=== PATIENT | female | born 1970 | race Caucasian/White ===

== ENCOUNTER 2017-02-28 06:33 | Observation (INO) | payer BC ==
[2017-02-26 13:18] LABS: BASOPHILS 0.3 %; BASOPHILS ABSOLUTE 0.02 10/3/uL (0.0-0.16); EOSINOPHILS 1.7 %; EOSINOPHILS ABSOLUTE 0.13 10/3/uL (0.0-0.53); HEMATOCRIT 38.7 % (36.0-48.0); HEMOGLOBIN 13.4 g/dL (12.0-16.0); IMMATURE GRANULOCYTES 0.4 %; IMMATURE GRANULOCYTES ABSOLUTE 0.03 10/3/uL (0.0-0.11); LYMPHOCYTES 28.8 %; LYMPHOCYTES ABSOLUTE 2.16 10/3/uL (0.67-4.30); MEAN CORPUS HGB CONC 34.6 g/dL (32.0-36.0); MEAN CORPUSCULAR HEMOGLOB 31.3 pg (26.0-34.0); MEAN CORPUSCULAR VOLUME 90.4 fL (80-100); MEAN PLATELET VOLUME 10.1 fL (9.2-13.0); MONOCYTES 5.9 %; MONOCYTES ABSOLUTE 0.44 10/3/uL (0.21-1.20); NEUTROPHILS 62.9 %; NEUTROPHILS ABSOLUTE 4.73 10/3/uL (2.02-8.40); PLATELET COUNT 227 10/3/uL (150-400); RBC DISTRIBUTION WIDTH 12.5 % (12.0-16.0); RED CELL COUNT 4.28 10/6/uL (4.0-5.6); WHITE BLOOD CELLS 7.5 10/3/uL (4.5-10.5)
[2017-02-26 13:19] LABS: MANUAL DIFF NO %
[2017-02-26 13:27] LABS: PARTIAL THROMBO TIME 26.5 SEC (22.5-37.2); PROTIME (NOT ORD) 12.6 SEC (12.0-14.5)
[2017-02-26 13:39] LABS: PFA (COL/EPI) 129 SEC (72-180)
[2017-02-26 13:44] LABS: A/G RATIO 1.4 (0.7-1.9); ALBUMIN 4.2 G/DL (3.5-5.0); ALKALINE PHOSPHATASE 87 U/L (45-117); BUN (BLOOD UREA NITROGEN) 8 MG/DL (6-23); CALCIUM, SERUM 9.6 MG/DL (8.5-10.4); CHLORIDE, SERUM 106 MMOL/L (96-112); CO2 (CARBON DIOXIDE) 27 MMOL/L (24-34); CREATININE 0.73 MG/DL (0.55-1.02); GFR AFRICAN AMERICAN 115 ML/MIN (>=60); GFR NON AFRICAN AMERICAN 99 ML/MIN (>=60); GLUCOSE, SERUM 87 MG/DL (60-99); SGOT(AST) 18 U/L (5-40); SGPT(ALT) 28 U/L (5-65); SODIUM, SERUM 142 MMOL/L (135-148); TOTAL BILIRUBIN 0.6 MG/DL (0-1.2); TOTAL PROTEIN 7.2 G/DL (6.0-8.5)
--- NOTE | ~2017-02-28 | OP ---
Record Of Operation [facility] [address] [place]. [address] NAME: JONNATHAN WERNER : 72 STATUS : DIS Zoran PAT#: [id number] AGE: 46 ADM/REG DATE : 02/28/17 MR#: [id number] REPORT SERV DATE: 03/03/17 DICTATED BY: PHOEBE MCGRAW JR. DATE: 02/28/17 REPORT STATUS : Draft TRANSCRIBED BY: MODRadha DATE: 02/28/17 DATE OF PROCEDURE: REASON FOR SURGERY: This 46-year-old patient presents with a malignancy of the left breast. The lesion is so vague and appears to be fairly large, and there may well be a second tumor in the superior position in the same breast seen on MRI. This tumor is hormone favorable and intermediate grade with final determinates to be made on the permanent sections. She has been counseled extensively and presented at the weekly breast conference. She has gone through cancerous counseling and has tested negative for inherited pattern of breast cancer. She is now scheduled for bilateral mastectomy and immediate reconstruction. PREOPERATIVE DIAGNOSIS: Carcinoma, left breast. POSTOPERATIVE DIAGNOSIS: Carcinoma, left breast. SURGEON: Dr. Mcgraw with reconstruction as per Dr. Castillo. SURGERY PERFORMED: [place] node localization on the left followed by bilateral mastectomy and sentinel node removal on the left and immediate reconstruction. Left side with skin sparing mastectomy and right side was nipple sparing mastectomy. DESCRIPTION OF PROCEDURE: The patient was initially injected in the [facility] facility. She was taken to the operating room and under general anesthesia, she was prepped and draped in supine position in the usual sterile fashion. The breast mounds were marked and the circumvertical marking on the left was outlined as well as the inframammary incision on the right. The left breast was approached and the circumvertical incision was made. Flaps were elevated in each direction to incorporate the entire breast mound. At no time was either tumor exposed. Dissection was carried into the low axilla. The breast was then removed from above downward incorporating the fascia. The breast was removed and oriented for pathology. As the breast was being removed, an 8 mm fleshy node was found on the lateral border on the latissimus and was removed as "intramammary" lymph node. Frozen section was negative. The gamma probe was used to isolate the active nodes in the left axilla. The intramammary node was not active. Two active nodes were removed with counts of 13,000 and 1300 with background count less than 20 indicating appropriate resection of the sentinel nodes. The more active node was somewhat fleshy and therefore frozen section requested, which was negative. The wound was irrigated and hemostasis obtained. Record Of Operation [facility] [address] [facility] [address] NAME: JONNATHAN WERNER : 72 STATUS : DIS Zoran PAT#: [id number] AGE: 46 ADM/REG DATE : 02/28/17 MR#: [id number] REPORT SERV DATE: 03/03/17 DICTATED BY: PHOEBE MCGRAW JR. DATE: 02/28/17 REPORT STATUS : Draft TRANSCRIBED BY: KIRSTIE DATE: 02/28/17 Attention was turned to the right breast. The inframammary incision was made and flaps elevated to incorporate the entire breast mound. The below upward dissection was performed in each of the plane. The fascia was removed from below upward at intervals as the anterior margin was dissected. Once the nipple itself was reached, the central ductal system that was resected was identified with suture material. Dissection was carried into the low axilla. Final dissection through the lower axillary tail was performed and the specimen removed and oriented for pathology. The wound was irrigated. Hemostasis obtained. The patient tolerated the procedure well without complications. ESTIMATED BLOOD LOSS: 150 mL. SPONGE COUNT: Correct. /TERESITAL Phoebe Mcgraw Jr., M.D. / [id number] CC: Divya Rhodes Jr., M.D. J. Kirk Rogers, D.O. F.A.C.P. John Shull, M.D.
--- NOTE | ~2017-02-28 | OP ---
Record Of Operation [facility] [address] [place]. [address] NAME: JONNATHAN WERNER : 72 STATUS : ADM Zoran PAT#: [id number] AGE: 46 ADM/REG DATE : 02/28/17 MR#: [id number] REPORT SERV DATE: 03/01/17 DICTATED BY: KARLI CASTILLO DATE: 02/28/17 REPORT STATUS : Draft TRANSCRIBED BY: MODRadha DATE: 02/28/17 DATE OF PROCEDURE: 02/28/2017 PREOPERATIVE DIAGNOSIS: Breast cancer, surgical absence of the breast. POSTOPERATIVE DIAGNOSIS: Breast cancer, surgical absence of the breast. PROCEDURE: Bilateral tissue expansion, acellular dermal matrix reconstruction of a left Circumvertical mastectomy and a right inframammary crease nipple-areolar complex sparing mastectomy. INDICATIONS AND FINDINGS OF THE PROCEDURE: This middle-aged female reports of breast cancer. She is anticipating a left circumvertical mastectomy, right nipple-areolar complex sparing mastectomy. She is appropriate for the above-described operative intervention. DETAILS OF THE PROCEDURE: The patient presents on the operating table after bilateral mastectomy. Our attention was initially turned to the right breast. The pectoralis was released and an appropriately reconstituted sheet of acellular dermal matrix was then sewn to the cut edge of the pectoralis muscle. The purpose of the acellular dermal matrix was to stabilize the soft tissue supplement. The soft tissue envelope recreated the inframammary crease and stabilize the position of the tissue distribution warehouse manager. A 475 mL tissue distribution warehouse manager was then placed behind the muscle AlloDerm construct. The AlloDerm was sewn tightly around its inferior edge with tab fixed to the chest wall and the implant was filled to 250 on the right. Inferior drains were placed. She was thoroughly irrigated. She had been infiltrated as a PEC and serratus block with ropivacaine and Precedex solution and the wounds were then closed with multiple layers of PDS and Monocryl through to an intracuticular in the skin. The nipple-areolar complex stayed well perfused throughout the procedure. Contralaterally, a similar procedure was carried out. The pectoralis muscle was released and identical sheet of acellular matrix was used to identical purpose. An identical tissue distribution warehouse manager was placed behind the muscle AlloDerm construct. With this completed, the implant was then filled to 150. Inferior and inferolateral drains were placed, and marionette stitches of 3-0 PDS were used to stabilize the soft tissue envelope. She had underwent a similar ropivacaine injection and the wounds were closed with multiple layers of 3-0 PDS and Monocryl through to an intracuticular in the skin. She was cleansed with peroxide. Nitroglycerin paste dressings were placed. Dry dressings were placed, and she was remanded to the recovery room in stable condition. All sponge and needle counts were correct. IVAN/KIRSTIE Karli Castillo M.D. / [id number] Record Of [address] [address] NAME: JONNATHAN WERNER : 72 STATUS : ADM Zoran PAT#: [id number] AGE: 46 ADM/REG DATE : 02/28/17 MR#: [id number] REPORT SERV DATE: 03/01/17 DICTATED BY: KARLI CASTILLO DATE: 02/28/17 REPORT STATUS : Draft TRANSCRIBED BY: KIRSTIE DATE: 02/28/17 CC: Roscoe Whitehead Jr., M.D.
[~2017-02-28 06:33] MED LIST: LEVSINTAB PO
[2017-03-01] MEDS ORDERED: AT25 PO (08:51)
[2017-03-01] MEDS ORDERED: K500 PO (08:52)
[2017-03-01] MEDS ORDERED: PERCOCET 7.5/321 TAB PO (08:53)
== END 2017-03-01 13:02 | disposition home or self-care (01) ==
LOC: SDC 06:33 → SDC/OF 13:54 → 4SO 15:09
PROVIDERS: Surgery Surgery of the Hand; Surgery Surgical Oncology
PROC: 0HHV0NZ Insertion of Tissue Expander into Bilateral Breast, Open Approach (ICD-10-PCS; 2017-02-28)
PROC: 07B60ZX Excision of Left Axillary Lymphatic, Open Approach, Diagnostic (ICD-10-PCS; 2017-02-28)
PROC: 0HBV0ZZ Excision of Bilateral Breast, Open Approach (ICD-10-PCS; principal; 2017-02-28 09:45)
PROC: 0HRV07Z Replacement of Bilateral Breast with Autologous Tissue Substitute, Open Approach (ICD-10-PCS; 2017-02-28 09:45)
DX: C50.912 Malignant neoplasm of unspecified site of left female breast (principal); C50.911 Malignant neoplasm of unspecified site of right female breast; K58.9 Irritable bowel syndrome, unspecified; Z90.89 Acquired absence of other organs; Z86.73 Personal history of transient ischemic attack (TIA), and cerebral infarction without residual deficits
CPT/HCPCS: 71020; 78195; 80053; 84703; 85025; 85576; 85610; 85730; 88305; 88307; 88331; 88333; 88341; 88342; 88360; 93005; 96374; 96375; 96376; A9270-GY; A9541; C1769; C1789; G0378; J0690; J1885; J2250; J2270; J2405; J2550; J2710; J2795; J3010; Q4116

== ENCOUNTER 2017-03-21 08:35 | Day surgery (SDC) | payer BC ==
[2017-03-14 15:35] LABS: BASOPHILS 0.3 %; BASOPHILS ABSOLUTE 0.03 10/3/uL (0.0-0.16); EOSINOPHILS 2.1 %; HEMATOCRIT 35.2 % (36.0-48.0); HEMOGLOBIN 11.8 g/dL (12.0-16.0); IMMATURE GRANULOCYTES 0.6 %; IMMATURE GRANULOCYTES ABSOLUTE 0.06 10/3/uL (0.0-0.11); LYMPHOCYTES 18.8 %; MEAN CORPUS HGB CONC 33.5 g/dL (32.0-36.0); MEAN CORPUSCULAR HEMOGLOB 31.6 pg (26.0-34.0); MONOCYTES 5.8 %; MONOCYTES ABSOLUTE 0.56 10/3/uL (0.21-1.20); NEUTROPHILS 72.4 %; NEUTROPHILS ABSOLUTE 6.93 10/3/uL (2.02-8.40); PLATELET COUNT 292 10/3/uL (150-400); RED CELL COUNT 3.74 10/6/uL (4.0-5.6); WHITE BLOOD CELLS 9.6 10/3/uL (4.5-10.5)
[2017-03-14 15:36] LABS: MANUAL DIFF NO %; MEAN CORPUSCULAR VOLUME 94.1 fL (80-100)
[2017-03-14 15:53] LABS: A/G RATIO 1.2 (0.7-1.9); ALBUMIN 3.4 G/DL (3.5-5.0); ALKALINE PHOSPHATASE 89 U/L (45-117); BUN (BLOOD UREA NITROGEN) 10 MG/DL (6-23); CALCIUM, SERUM 8.9 MG/DL (8.5-10.4); CHLORIDE, SERUM 106 MMOL/L (96-112); CO2 (CARBON DIOXIDE) 30 MMOL/L (24-34); CREATININE 0.63 MG/DL (0.55-1.02); GFR AFRICAN AMERICAN 126 ML/MIN (>=60); GFR NON AFRICAN AMERICAN 108 ML/MIN (>=60); GLOBULIN 2.9 G/DL (2.5-4.1); GLUCOSE, SERUM 90 MG/DL (60-99); POTASSIUM, SERUM 3.9 MMOL/L (3.5-5.3); SGOT(AST) 17 U/L (5-40); SGPT(ALT) 35 U/L (5-65); SODIUM, SERUM 141 MMOL/L (135-148); TOTAL BILIRUBIN 0.5 MG/DL (0-1.2); TOTAL PROTEIN 6.3 G/DL (6.0-8.5)
--- NOTE | ~2017-03-21 | OP ---
Record Of Operation [facility] [address] [place]. [address] NAME: JONNATHAN WERNER : 72 STATUS : [facility]#: [id number] AGE: 46 ADM/REG DATE : 03/21/17 MR#: [id number] REPORT SERV DATE: 03/24/17 DICTATED BY: PHOEBE MCGRAW JR. DATE: 03/21/17 REPORT STATUS : Draft TRANSCRIBED BY: KIRSTIE DATE: 03/21/17 DATE OF PROCEDURE: REASON FOR SURGERY: This 46-year-old patient has undergone bilateral mastectomy and immediate reconstruction for a tumor that eventually proved to be HER-2 positive and hormone positive. High-grade tumor noted, but node negative. She now is scheduled for chemotherapy and is in need of venous port. PREOPERATIVE DIAGNOSIS: Carcinoma, left breast with the need of venous port for chemotherapy. POSTOPERATIVE DIAGNOSIS: Carcinoma, left breast with the need of venous port for chemotherapy. SURGEON: Phoebe Mcgraw M.D. SURGERY PERFORMED: Insertion of PowerPort, venous port. PROCEDURE IN DETAIL: Under general anesthesia, the patient was prepped and draped in supine position in a usual sterile fashion. The right internal jugular was selected and lateral tunneling was to be done due to the presence of the reconstructed right breast and the temporary prosthesis, which gives a small area between the clavicle and prosthetic on the right side. The needle and wire were inserted into the vein without difficulty and documented to be in correct position with fluoroscopy. A small puncture incision was made behind the axillary fold and the catheter tunneled through to this point. It was further tunneled into an incision on the lateral chest wall. Fluoroscopy was used throughout to document correct positioning and no kinking. The port was assembled, aspirated, flushed, and secured to the chest wall on the lateral side of the chest with Prolene. The wound was irrigated. Hemostasis obtained. Final fluoroscopy revealed correct positioning with no kinking and good positioning in the junction of vena cava and atrium. These two small puncture wounds were closed with 4-0 Monocryl and Dermabond. The port site was closed with three layers of Monocryl and Dermabond. The patient tolerated the procedure well without complications. ESTIMATED BLOOD LOSS: Negligible. SPONGE COUNT: Correct. /KIRSTIE Phoebe Mcgraw Jr., M.D. Record Of Operation [facility] [address] [place]. [address] NAME: JONNATHAN WERNER : 72 STATUS : [facility] PAT#: [id number] AGE: 46 ADM/REG DATE : 03/21/17 MR#: [id number] REPORT SERV DATE: 03/24/17 DICTATED BY: PHOEBE MCGRAW JR. DATE: 03/21/17 REPORT STATUS : Draft TRANSCRIBED BY: MODL DATE: 03/21/17 / [id number] CC: Divya Rhodes Jr., D.O. F.A.C.P. Mark Brzezienski, M.D. John Shull, M.D. Bertrand Marquess Anz III, M.D.
[~2017-03-21 08:35] MED LIST changes: +AT25 PO; +K500 PO; +PERCOCET 7.5/321 TAB PO
== END 2017-03-21 17:59 | disposition home or self-care (01) ==
LOC: SDC 08:35
PROVIDERS: Surgery Surgical Oncology
PROC: 05HM33Z Insertion of Infusion Device into Right Internal Jugular Vein, Percutaneous Approach (ICD-10-PCS; 2017-03-21)
PROC: B513YZA Fluoroscopy of Right Jugular Veins using Other Contrast, Guidance (ICD-10-PCS; 2017-03-21)
PROC: 0JH60XZ Insertion of Tunneled Vascular Access Device into Chest Subcutaneous Tissue and Fascia, Open Approach (ICD-10-PCS; principal; 2017-03-21 10:00)
DX: C50.912 Malignant neoplasm of unspecified site of left female breast (principal); H40.9 Unspecified glaucoma; K58.9 Irritable bowel syndrome, unspecified; Z90.89 Acquired absence of other organs; Z98.890 Other specified postprocedural states; Z79.891 Long term (current) use of opiate analgesic; Z88.8 Allergy status to other drugs, medicaments and biological substances; Z79.899 Other long term (current) drug therapy
CPT/HCPCS: 71010; 77001; 80053; 84703; 85025; C1751; J0690; J2250; J2270; J2405; J3010